=== PATIENT | female | born 1965 | race Caucasian/White ===

== ENCOUNTER 2019-05-12 09:26 | Outpatient (CLI) | payer BC, SELFPAY ==
--- NOTE | ~2019-05-12 | MM_ITS ---
EXAMINATION: MM screening rosalia BI w katie HISTORY: Screening mammogram TECHNIQUE: Craniocaudal and mediolateral oblique 3-D tomosynthesis images were obtained and synthetic 2-D images were generated. CAD analysis was submitted and interpreted. COMPARISON: No prior mammogram is available for comparison at this institution. BREAST PARENCHYMAL COMPOSITION: The breasts are almost entirely fatty. FINDINGS: There is no evidence of suspicious mass, calcification, or architectural distortion to sugg est malignancy in either breast. There has been no suspicious interval change. IMPRESSION: 1. No mammographic evidence of malignancy. 2. Recommend routine screening mammography in one year. BI-RADS Category 1: Negative Reviewed, dictated and finalized at location A.
== END 2019-05-12 09:27 | disposition home or self-care (01) ==
LOC: ANHIMG 09:29
PROVIDERS: PCP Emergency Medicine; Visit Provider Emergency Medicine
DX: Z12.31 Encounter for screening mammogram for malignant neoplasm of breast (principal)
CPT/HCPCS: 77063; 77067

== ENCOUNTER 2019-06-27 12:36 | Outpatient (CLI) | payer BC, SELFPAY ==
--- NOTE | ~2019-06-27 | XR_ITS ---
EXAMINATION: XR abdomen/kub 1V DATE: 06/27/2019 13:02 INDICATION: Left flank pain TECHNIQUE: A supine view of the abdomen on 2 radiographs was obtained. COMPARISON: 12/31/2018 FINDINGS: The previous 11 mm stone seen in the lower pole of the left kidney is no longer visualized. There are 2 new stones or more likely stone fragments post lithotripsy in the proximal left ureter measuring 4 -5 mm and the second at or near the left ureterovesicular junction which measures 7 mm. No right-side d urolithiasis. There are couple additional unchanged subtle phleboliths in the more inferior left he mipelvis. Normal bowel gas pattern. IMPRESSION: 1. Couple likely left renal stone fragments measuring 4-5 mm at proximal to mid left ureter and 7 mm at the left ureterovesicular junction. Reviewed, dictated and finalized at location A.
== END 2019-06-27 12:37 | disposition home or self-care (01) ==
PROVIDERS: PCP Emergency Medicine; Visit Provider Urology
DX: R10.9 Unspecified abdominal pain (principal); N20.1 Calculus of ureter
CPT/HCPCS: 74018

== ENCOUNTER 2019-06-30 13:21 | Day surgery (SDC) | payer BC, SELFPAY ==
[2019-06-30] VITALS (7 sets, daily range): BP systolic 105–128; BP diastolic 54–78; PULSE 84–94; RESP 13–18; TEMP 36.2–37.2; O2SAT 92–99; BMI 42.5
--- NOTE | ~2019-06-30 | XR_ITS ---
EXAMINATION: XR retrograde pyelo w/stent LT EXAM DATE: 06/30/2019 16:10 INDICATION: Left-sided stone extraction, stent placement. Left-sided obstructive nephropathy. TECHNIQUE: Fluoroscopy used during XR retrograde pyelo w/stent LT performed by Dr. Jersey olivia MD. The DAP for this procedure was 0.71 mGym2. FINDINGS: Single image demonstrates proximal loop of a left double-J ureteral stent in expected posi tion, with contrast in left renal calyces. Correlate with procedure note. IMPRESSION: Fluoroscopy used during XR retrograde pyelo w/stent LT. Reviewed, dictated and finalized at location A.
--- NOTE | 2019-06-30 12:40 | ECG_ITS ---
Measurements Intervals [place] Rate: 88 P: 47 NV: 140 QRS: 18 QRSD: 89 T: 38 QT: 383 QTc: 464 Interpretive Statements SINUS RHYTHM BASELINE ARTIFACT- II, III, AVF, V4 NORMAL ECG Electronically Signed On 06-30-2019 14:45:04 CDT by Reji Auguste D.O.
[2019-06-30] MEDS: LACTATED RINGERS 1,000 ML 30 ML IV CONT (14:30)
--- NOTE | 2019-06-30 14:41 | WPDANESEPPF ---
Anes - Initial Pre Proc Eval Procedure: Operation Date: 06/30/19 16:00 Proposed Procedures p Cystoscopy, Left Ureteroscopy, Left Retrograde Pyelogram, Left Stone Extraction, Left Stent Placement - Vladimir Hickey MD s Possible Holmium Laser Procedure - Vladimir Hickey MD Date/Time: 06/30/19 14:41 Surgeon: Vladimir Hickey MD Pre Op Diagnosis: Two Left Ureteral Stones Patient Data Age: 53 Gender: F Height: 5 ft 3 in Weight: 109.09 kg Allergies Allergy/AdvReac Type Severity Reaction Status Date / Time Penicillins Allergy Intermediate Rash Verified 06/30/19 14:04 Home Medications Medication Instructions Recorded Confirmed Type albuterol sulfate [ProAir HFA] 1 inh INHALATION QID PRN 12/30/18 06/30/19 History metformin 500 mg PO HS 12/30/18 06/30/19 History omeprazole magnesium [Prilosec OTC] 20 mg PO HS 12/30/18 06/30/19 History sertraline 100 mg PO HS 12/30/18 06/30/19 History simvastatin 20 mg PO HS 12/30/18 06/30/19 History acetaminophen-codeine 1 tablet PO Q6H PRN 06/30/19 06/30/19 History lisinopril 10 mg PO DAILY 06/30/19 06/30/19 History nitrofurantoin monohyd/m-cryst 100 mg PO BID 06/30/19 06/30/19 History tamsulosin mg PO HS 06/30/19 History Patient hx anesthesia problems: none Family hx anesthesia problems: none PMFSH Past Medical History Medical History ADHD COPD (chronic obstructive pulmonary disease) Diabetes MEÑO (obstructive sleep apnea) Surgical History Surgical History H/O: hysterectomy Social History Social History Smoking status: Heavy tobacco smoker Second hand tobacco smoke exposure: No Alcohol intake: never Anes - Eval Final PreProcedure Day of Procedure 06/30/19 14:41 Patient weight: morbidly obese Heart: regular rate and rhythm Lungs: decreased breath sounds Airway: Mallampati scale class II Neurological: alert and oriented Last oral intake: >/= 8 hours ASA classification: III Emergent: no Anesthetic plan: proceed Anesthesia type and monitoring: general LMA and standard monitoring Informed Consent: The patient's anesthetic plan and its attendant risks and benefits were discussed with the patient/family/POA. Questions were solicited and answers provided to the satisfaction of the patient/family/POA.
[2019-06-30 14:44] LABS: Glucose Point of Care 95 (65-105)
[2019-06-30 14:58] LABS: Blood Urea Nitrogen 14 mg/dL (7-17); Calcium 9.1 mg/dL (8.4-10.2); Carbon Dioxide 25 mmol/L (22-30); Chloride 101 mmol/L (98-107); Estimated CRCL calculation 109 ml/min; Estimated Glomerular Filt Rate > 60; Glucose 98 mg/dL (65-105); Potassium 4.3 mmol/L (3.4-5.0); Sodium 134 mmol/L (137-145)
--- NOTE | 2019-06-30 15:01 | WPDHPUPDATE1 ---
History and Physical Update Update Date/Time: 06/30/19 15:01 History and Physical has been reviewed, including an updated exam of the patient. There are NO changes in the patient's condition. Risks, benefits, and alternatives have been discussed and questions answered. Patient agrees to proceed with procedure. Seen and discussed in preop. Left ureteroscopy, laser lithotripsy, stent placement. Discussed possibility of staged procedure if cannot get scope to stone.
[2019-06-30] MEDS: KETOROLAC 30 MG/ML VIAL (*BKC) IV PUSH (16:02)
--- NOTE | 2019-06-30 16:07 | PM.PROC ---
Procedure Note - Detailed Date of procedure: 06/30/19 Pre-op diagnosis: Two Left Ureteral Stones Post-op diagnosis: same Procedure performed: Cystoscopy, left ureteroscopy, laser lithotripsy, stone extraction, retrograde pyelogram, stent placement Description of procedure: Findings: 1. Multiple large fragments were seen just above the ureterovesical junction on the left. These were fragmented and extracted with no residual fragments. 2. Six [place] stent placed at the conclusion the case. Details: The patient was brought back to the operating room. She was prepped, draped, padded per protocol. Levofloxacin was administered. Time-out was performed. The bladder was entered with the rigid cystoscope. The left ureter appeared edematous. A guidewire was advanced up into the renal pelvis. This was secured to the drape as a safety wire. A semi-rigid ureteral scope was advanced alongside the wire into the distal ureter. This did not require dilation. Multiple large stone fragments were seen just above the intramural tunnel. Holmium laser was used to fragment the stones into multiple small pieces. These were individually basketed out. Ureteroscopy up to the ureteropelvic junction was then undertaken. There were no residual fragments. There was no significant trauma to the ureter. The cystoscope was loaded over the guidewire. This was exchanged for an open-ended ureteral catheter to the mid ureter. A retrograde pyelogram was performed showing mild hydroureter. Delicate calices. The wire was replaced in the renal pelvis. Over the wire 6 [place] variable length stent was inserted. There was good curl noted proximally and a good curl visualized in the bladder. The bladder was drained. The patient was awoken and sent to recovery. Plan: Discharge. Stent removal in approximately 1 week. Anesthesia: GLMA Surgeon: Jersey Smallwood MD Complications: None Condition: stable Disposition: PACU
[2019-06-30 16:26] LABS: Glucose Point of Care 102 (65-105)
== END 2019-06-30 17:25 | disposition home or self-care (01) ==
PROVIDERS: Anesthesiology; Urology; PCP Emergency Medicine; Visit Provider Urology
PROC: (CPT 52352; principal; 2019-06-30 16:00)
PROC: (CPT 52356; 2019-06-30 16:00)
DX: N20.1 Calculus of ureter (principal); E11.9 Type 2 diabetes mellitus without complications; J44.9 Chronic obstructive pulmonary disease, unspecified; G47.33 Obstructive sleep apnea (adult) (pediatric); F90.9 Attention-deficit hyperactivity disorder, unspecified type; Z79.84 Long term (current) use of oral hypoglycemic drugs; Z72.0 Tobacco use; E66.01 Morbid (severe) obesity due to excess calories; Z68.41 Body mass index [BMI] 40.0-44.9, adult; Z79.82 Long term (current) use of aspirin
CPT/HCPCS: 52356; 36415; 74420; 80048; 82365; 88300; 93005; A9270; C1769; C2617; J1100; J1885; J2001; J2250; J2405; J2704; J3010; J7120; Q9966

== ENCOUNTER 2020-05-05 08:57 | Outpatient (CLI) | payer BC, SELFPAY | END 2020-05-05 08:58 | disposition home or self-care (01) | LOC: ANHCOVIDVC 08:57 | PROVIDERS: PCP Emergency Medicine | DX: Z23 Encounter for immunization (principal) | CPT/HCPCS: 0001A; 91300 ==

== ENCOUNTER 2020-05-26 08:48 | Outpatient (CLI) | payer BC, SELFPAY | END 2020-05-26 08:49 | disposition home or self-care (01) | LOC: ANHCOVIDVC 08:48 | PROVIDERS: PCP Emergency Medicine | DX: Z23 Encounter for immunization (principal) | CPT/HCPCS: 0002A; 91300 ==

== ENCOUNTER 2022-05-01 07:39 | Outpatient (CLI) | payer BC, SELFPAY ==
--- NOTE | ~2022-05-01 | MM_ITS ---
EXAMINATION: MM screening rosalia BI w katie HISTORY: Screening mammogram TECHNIQUE: Craniocaudal and mediolateral oblique 3-D tomosynthesis images were obtained and synthetic 2-D images were generated. CAD analysis was submitted and interpreted. COMPARISON: 05/12/2019 BREAST PARENCHYMAL COMPOSITION:The breasts are almost entirely fatty FINDINGS: No suspicious mass, calcification, or architectural distortion are identified in either judi ast to suggest malignancy. There has been no suspicious interval change. IMPRESSION: No mammographic evidence of malignancy. Recommend routine screening mammography in one year. BI-RADS Category 1: Negative Reviewed, dictated and finalized at location .
== END 2022-05-01 07:40 | disposition home or self-care (01) ==
PROVIDERS: PCP Emergency Medicine; Visit Provider Emergency Medicine
DX: Z12.31 Encounter for screening mammogram for malignant neoplasm of breast (principal)
CPT/HCPCS: 77063; 77067

== ENCOUNTER 2023-05-02 10:58 | Outpatient (CLI) | payer BC, SELFPAY ==
[2023-05-02 11:25] LABS: Basophils Absolute Auto 0.1 K/mm3 (0.0-0.1); Basophils Percent Auto 0.7 % (0.2-1.2); Eosinophils Absolute Auto 0.2 K/mm3 (0-0.3); Eosinophils Percent Auto 2.3 % (0-4.4); Hematocrit 46.8 % (37.0-47.0); Hemoglobin 15.4 g/dL (12.0-15.0); Immature Granulocyte Absolute 0.04 K/mm3 (0.00-0.031); Immature Granulocyte Percent A 0.4 % (0-0.5); Lymphocytes Absolute Auto 2.33 K/mm3 (0.9-3.2); Lymphocytes Percent Auto 23.8 % (18.3-44.2); Mean Corpuscular HGB Conc 32.9 g/dl (32-36); Mean Corpuscular Hemoglobin 29.6 pg (26-34); Mean Corpuscular Volume 89.8 fl (80-100); Monocytes Absolute Auto 0.9 K/mm3 (0.1-0.6); Monocytes Percent Auto 9.5 % (2.6-8.5); Neutrophils Absolute Auto 6.2 K/mm3 (1.3-6.7); Neutrophils Percent Auto 63.3 % (45.5-73.1); Platelet Count Result 301 k/mm3 (150-375); Red Blood Count 5.21 M/mm3 (4.2-5.4); Red Cell Distribution Width 13.6 % (11.5-14.5); White Blood Count 9.8 K/mm3 (4.5-10.0)
[2023-05-02 12:29] LABS: Alanine Aminotransferase 38 U/L (6-35); Albumin Level 4.6 g/dL (3.5-5.1); Alkaline Phosphatase 98 U/L (38-126); Anion Gap 7 mmol/L (8-16); Aspartate Amino Transferase 34 U/L (14-36); Bilirubin,Total 0.5 mg/dL (0.2-1.3); Blood Urea Nitrogen 15 mg/dL (7-17); Calcium 9.9 mg/dL (8.4-10.2); Carbon Dioxide 26 mmol/L (22-30); Chloride 103 mmol/L (98-107); Estimated Glomerular Filt Rate > 60; Glucose 110 mg/dL (65-110); Potassium 4.3 mmol/L (3.4-5.0); Sodium 136 mmol/L (137-145)
[2023-05-04 13:41] LABS: Erythropoietin (EPO) 8.5 mIU/mL (2.6-18.5)
== END 2023-05-02 10:59 | disposition home or self-care (01) ==
LOC: ANHLAB 11:04
PROVIDERS: Nurse Practitioner Family; PCP Emergency Medicine; Visit Provider Internal Medicine Hematology & Oncology
DX: D75.1 Secondary polycythemia (principal)
CPT/HCPCS: 36415; 80053; 82668; 85025

== ENCOUNTER 2023-08-22 08:06 | Outpatient (CLI) | payer BC, SELFPAY ==
[2023-08-22 08:28] LABS: Basophils Absolute Auto 0.1 K/mm3 (0.0-0.1); Basophils Percent Auto 0.7 % (0.2-1.2); Eosinophils Absolute Auto 0.2 K/mm3 (0-0.3); Eosinophils Percent Auto 2.3 % (0-4.4); Hemoglobin 14.6 g/dL (12.0-15.0); Immature Granulocyte Absolute 0.04 K/mm3 (0.00-0.031); Immature Granulocyte Percent A 0.5 % (0-0.5); Lymphocytes Absolute Auto 2.04 K/mm3 (0.9-3.2); Lymphocytes Percent Auto 24.7 % (18.3-44.2); Mean Corpuscular HGB Conc 32.4 g/dl (32-36); Mean Corpuscular Hemoglobin 28.9 pg (26-34); Mean Corpuscular Volume 88.9 fl (80-100); Mean Platelet Volume 11.6 fl (7.4-10.4); Monocytes Absolute Auto 0.7 K/mm3 (0.1-0.6); Monocytes Percent Auto 8.6 % (2.6-8.5); Neutrophils Absolute Auto 5.2 K/mm3 (1.3-6.7); Neutrophils Percent Auto 63.2 % (45.5-73.1); Platelet Count Result 294 k/mm3 (150-375); Red Blood Count 5.06 M/mm3 (4.2-5.4); Red Cell Distribution Width 13.8 % (11.5-14.5); White Blood Count 8.3 K/mm3 (4.5-10.0)
== END 2023-08-22 08:07 | disposition home or self-care (01) ==
LOC: ANHLAB 08:16
PROVIDERS: Nurse Practitioner Family; PCP Emergency Medicine; Visit Provider Internal Medicine Hematology & Oncology
DX: D75.1 Secondary polycythemia (principal)
CPT/HCPCS: 36415; 85025